=== PATIENT | male | born 1955 | race Native Hawaiian/Other Pacific Islander ===

== ENCOUNTER → 2019-07-29 13:41 | Outpatient (CLI) | payer MEDICARE, OTHER, SELFPAY ==
--- NOTE | 2019-07-29 | DI.MRI.S_ITS ---
PROCEDURE: MR LUMBAR SPINE WO CON INDICATIONS: Low back pain TECHNIQUE: Noncontrast sagittal T1 spin echo and T2 fast echo, sagittal STIR, axial T1 and T2 fast spin echo through the lumbar spine. In cases with scoliosis, additional coronal T2 fast spin echo may be performed. COMPARISON: None. FINDINGS: Image quality: Diagnostic, with note made of motion artifact. Images are repeated, with some improvement. Alignment and Curvature: There is normal bony alignment. Bone Marrow: Marrow is of normal overall signal. No acute vertebral body compression fractures. Spinal Cord: Conus medullaris terminates at the L1 level. Visualized cord demonstrates normal signal and size. Paraspinous Soft Tissues: No paravertebral masses. T12-L1: Normal appearance. L1-L2: Mild to moderate loss of disc height and disc signal are seen. Mild to moderate disc bulge is seen. There is moderate bilateral neural foraminal narrowing seen, right worse than left. Mild central canal narrowing is seen. L2-L3: The disc height is well-preserved. Loss of disc signal is seen at this level. Moderate generalized disc bulge is seen. Mild facet joint hypertrophy is seen. Moderate bilateral neural foraminal narrowing is seen, right worse than left. Moderate central canal narrowing is seen. L3-L4: The disc height is well-preserved. Loss of disc signal is seen at this level. Moderate generalized disc bulge is seen. There is a central disc protrusion seen. Moderate facet joint hypertrophy is seen. There is moderate to severe bilateral neural foraminal narrowing seen, right worse than left. There is a degree of compression seen upon the exiting nerve roots. Moderate to severe central canal narrowing is seen, as on series 5 image 20. L4-L5: Moderate loss of disc height is seen. Loss of disc signal is seen. Moderate disc bulge is seen, which is eccentric to the right side. Mild to moderate facet hypertrophy is seen. There is at least moderate right-sided and moderate left-sided neural foraminal narrowing. Moderate central canal narrowing is seen. L5-S1: Moderate loss of disc height is seen. Loss of disc signal is seen. Moderate disc bulge is seen, which is eccentric to the left. [id number] facet hypertrophy is seen. Moderate to severe bilateral neural foraminal narrowing is seen, left worse than right. There is a degree of compression seen upon the exiting nerve roots. Mild central canal narrowing is seen. IMPRESSION: Multiple 2levels of lumbar spine degenerative changes are seen including bilateral moderate to severe neural foraminal narrowing at L3-L4 and L5-S1. Dictated by: Lul Ruiz M.D. on 07/29/2019 at 15:06 Approved by: Lul Ruiz M.D. on 07/29/2019 at 15:09
== END ==
PROVIDERS: PCP Family Medicine; Visit Provider Physical Medicine & Rehabilitation Pain Medicine
DX: M54.5 Low back pain (principal); M47.816 Spondylosis without myelopathy or radiculopathy, lumbar region; M47.817 Spondylosis without myelopathy or radiculopathy, lumbosacral region; M48.061 Spinal stenosis, lumbar region without neurogenic claudication; M48.07 Spinal stenosis, lumbosacral region
CPT/HCPCS: 72148

== ENCOUNTER → 2021-03-08 10:27 | Outpatient (CLI) | payer MEDICARE, OTHER, SELFPAY ==
--- NOTE | 2021-03-08 | DI.CT.S_ITS ---
PROCEDURE: CT SINUS SCREEN WO CON INDICATIONS: Other specified disorders of nose and nasal sinuses TECHNIQUE: Noncontrast 3.0 mm axial images acquired from the frontal sinuses to the mid-sella, with coronal and sagittal reformats. For radiation dose reduction, the following was used: automated exposure control, adjustment of mA and/or kV according to patient size. COMPARISON: None. FINDINGS: Maxillary Sinuses: The maxillary sinuses are clear without significant mucosal thickening or air-fluid levels. The ostiomeatal units are patent bilaterally. No significant Brittny ethmoid air cells present along the inferior medial orbital lanza. Sphenoid Sinuses: The sphenoethmoidal recesses are patent and unobstructed. The sphenoid sinuses are clear. Sphenoid pneumatization pattern is sellar, extending posteriorly beyond the tuberculum sella. No On[place] or sphenoethmoidal air cells present. The optic nerve is well covered. Frontal Sinuses: The frontal recesses are both patent. The frontal sinuses are clear. Ethmoid Sinuses: The ethmoid air cells are clear without significant mucosal thickening or air-fluid levels. The fovea ethmoidalis and cribriform plate are unremarkable. The lamina papyracea are both structurally intact. Lateral lamella are asymmetric, left higher than right. Nasal Cavity and Septum: Nasal turbinates unremarkable without pneumatization. Cartilaginous and osseous components of the nasal septum intact. There is nasal septal bowing/spurring to the right Skull Base: The anterior cranial fossa and pituitary sella are unremarkable. No evidence of bony dehiscence. Both osseous orbits and contents are within normal limits. IMPRESSION: 1. Nasal septal spurring/bowing to the right. Otherwise unremarkable CT of the paranasal sinuses Approved by: Asim Downey M.D. on 03/08/2021 at 11:46
== END ==
PROVIDERS: PCP Family Medicine; Referring Provider Otolaryngology; Visit Provider Otolaryngology
DX: J32.4 Chronic pansinusitis (principal); J34.3 Hypertrophy of nasal turbinates; J34.89 Other specified disorders of nose and nasal sinuses; J34.2 Deviated nasal septum
CPT/HCPCS: 70486

== ENCOUNTER → 2021-05-11 13:20 | Outpatient (CLI) | payer MEDICARE, OTHER, SELFPAY ==
--- NOTE | 2021-05-11 | DI.MRI.S_ITS ---
PROCEDURE: MR CERVICAL SPINE WO CON INDICATIONS: Spinal stenosis, cervical region TECHNIQUE: Noncontrast sagittal T1 spin echo and T2 fast spin echo, and axial gradient echo was obtained through the cervical spine. Additional sequences were not obtained, and the study was terminated early at the patient's request. COMPARISON:Related to [facility], MR, MR LUMBAR SPINE WO CON, 07/29/2019, 15:31. a FINDINGS: Image quality: Excellent. Alignment and Curvature: Straightening of the normal cervical lordosis may be related to muscle spasm or positioning. Bone Marrow: The fatty marrow signal is suppressed, which could reflect red marrow conversion. Marrow signal is otherwise unremarkable. Spinal Cord: Cord signal unremarkable without edema. Paraspinous Soft Tissues: No paravertebral masses. Prevertebral soft tissues are normal in thickness. C2-C3: Normal appearance. C3-C4: Disc space narrowing and posterior disc osteophyte complex is eccentric to the left results in moderate foraminal stenosis with flattening the ventral surface of the cord as well as moderate bilateral foraminal stenosis, left greater than right. C4-C5: Disc space narrowing and posterior disc osteophyte complex results in moderate central stenosis with flattening the ventral surface of the cord and moderate foraminal stenosis, right greater than left. C5-C6: Posterior disc osteophyte results in moderate canal stenosis with flattening the ventral surface of the cord. There is severe right and moderate left foraminal stenosis. C6-C7: And disc space narrowing and small posterior osteophyte present with mild central and no foraminal stenosis. C7-T1: Disc height is preserved. No central or foraminal stenosis. IMPRESSION: 1. Multilevel degenerative disc disease and arthropathy results in varying degrees of central and foraminal stenosis including moderate central stenosis at C3-4, C4-5 and C5-6. 2. Low cervical spine bone marrow signal may reflect red marrow conversion Dictated by: Asim Downey M.D. on 05/11/2021 at 14:17 Approved by: Asim Downey M.D. on 05/11/2021 at 15:10
== END ==
PROVIDERS: PCP Family Medicine; Referring Provider Physical Medicine & Rehabilitation Pain Medicine; Visit Provider Physical Medicine & Rehabilitation Pain Medicine
DX: M48.02 Spinal stenosis, cervical region (principal); M50.31 Other cervical disc degeneration, high cervical region
CPT/HCPCS: 72141

== ENCOUNTER → 2021-08-23 16:00 | Outpatient (CLI) | payer MEDICARE, OTHER, SELFPAY ==
--- NOTE | 2021-08-23 16:01 | DI.MRI.S_ITS ---
PROCEDURE: MR ANKLE RT WO/W CON INDICATIONS: PAIN RIGHT ANKLE TECHNIQUE: Noncontrast sagittal T1 spin echo and T2 fast spin echo with fat saturation, axial proton density fast spin echo and T2 fast spin echo with fat saturation, axial T1 spin echo with fat saturation, coronal T1 spin echo and T2 fast spin echo with fat saturation through the ankle/hindfoot. Post-contrast axial, coronal, and sagittal T1 spin echo with fat saturation through the ankle/hindfoot. COMPARISON: None. FINDINGS: Image quality: Excellent. Bones and joints: There are periarticular areas of bone marrow edema between the medial malleolus and medial talus as well as between the lateral malleolus and the lateral talus. No discrete associated fracture lines identified. There are associated cystic changes within the lateral talus. The findings may represent bone contusions, degenerative subchondral edema, stress reactions, or postsurgical change. A focus of magnetic susceptibility is present within the inferior lateral malleolus consistent with sequelae of prior surgery. There is mild tibiotalar joint degeneration along the ankle mortise with mild cartilage thinning and small foci of subchondral edema. No osteochondral lesions of the talar dome. There is a small tibiotalar joint effusion with mild synovial edema and enhancement. Medial structures: The posterior tibialis, flexor digitorum longus, and flexor hallucis longus tendons are intact with a small amount of tenosynovial fluid tracking along the tendons. There is mild edema along the myotendinous junction of the flexor hallucis longus consistent with a mild strain. The posterior tibial neurovascular bundle appears normal within the tarsal tunnel, without extrinsic mass effect. The superficial layer of the deltoid ligament is markedly attenuated in appearance with edema along its compacted course consistent with sequelae a prior severe sprain. The deep layer appears thickened consistent with a sequelae of a mild sprain. The spring ligament components appear grossly intact. Lateral structures: The anterior and posterior talofibular ligaments and the calcaneofibular ligament are thickened and attenuated in signal consistent with sequelae of moderate to severe sprains. Postsurgical changes are demonstrated inferiorly within the lateral malleolus likely related to prior ligamentous reconstruction. There is prominent edema inferior to the lateral malleolus with T2 hyperintense soft tissue suggestive of postsurgical scarring. More superiorly, the anterior and posterior tibiofibular ligaments appear mildly attenuated in signal with periligamentous edema consistent with mild sprains. The tibiofibular syndesmosis is normal in width at 2 mm or less. The peroneus longus and brevis tendons demonstrate normal location and morphology. Adjacent bony peroneal tubercle and retrotrochlear prominence are normal in size. The sinus tarsi demonstrates preserved fatty signal with mild edema and cystic change consistent with reactive changes or sequelae of ligamentous sprains. The calcaneonavicular and calcaneocuboid components of the bifurcate ligament appear intact. The dorsal calcaneocuboid ligament appears intact. Anterior structures: The tibialis anterior, extensor hallucis longus, and extensor digitorum longus tendons appear intact. The dorsal talonavicular ligament appears intact. Posterior and plantar structures: Achilles tendon is intact. Medial and lateral bands of the plantar fascia are of normal thickness. No abductor digiti quinti muscle atrophy to suggest Chi neuropathy. IMPRESSION: 1. Prominent periarticular bone marrow edema along the medial malleolus and medial talus as well as the lateral malleolus and lateral talus. The findings may represent bone contusions, degenerative subchondral edema, or stress reactions. The differential also includes osteomyelitis but this is considered less likely. 2. Small tibiotalar joint effusion with mild synovial thickening and enhancement which may represent a reactive synovitis related to prior surgery but infection cannot be excluded. Recommend correlation clinically for possible septic arthritis. 3. Postsurgical changes compatible with prior lateral ligamentous reconstruction. There is sequelae of prior moderate to severe sprains of the talofibular and calcaneofibular ligaments. 4. Mild sprains of the tibiofibular ligaments. 5. Mild tibiotalar joint degeneration. 6. Mild to synovitis of the flexor tendons with mild strain of the flexor hallucis longus along the myotendinous junction. Dictated by: Fran Lyon M.D. on 08/24/2021 at 12:09 Approved by: Fran Lyon M.D. on 08/24/2021 at 12:36
== END ==
PROVIDERS: PCP Family Medicine; Referring Provider Family Medicine; Visit Provider Family Medicine
DX: S93.431A Sprain of tibiofibular ligament of right ankle, initial encounter (principal); M19.071 Primary osteoarthritis, right ankle and foot; M65.871 Other synovitis and tenosynovitis, right ankle and foot; M25.571 Pain in right ankle and joints of right foot
CPT/HCPCS: 73723; A9579